=== PATIENT | female | born 1960 | race Caucasian/White ===

== ENCOUNTER 2022-05-03 07:27 | Day surgery (SDC) | payer BC, SELFPAY ==
[2022-05-03] VITALS (19 sets, daily range): BP systolic 102–144; BP diastolic 56–95; PULSE 49–68; RESP 16–20; TEMP 36.1–36.6; O2SAT 7–99; BMI 24.0
[2022-05-03] MEDS: fentaNYL 100 MCG/2 ML inj IVP (07:09)
[2022-05-03] MEDS: MIDAZOLAM HCL 1 MG/ML inj IVP (07:09)
[2022-05-03] MEDS: LACTATED RINGERS 1000 ML 1,000 ML 100 ML IV (07:30)
[2022-05-03] MEDS: SODIUM CHLORIDE 0.9 % (FLUSH) 10 ML SYRINGE IVF (08:26)
--- NOTE | 2022-05-03 08:32 | SUR.PREOP ---
TIME?OUT:? 0830 PT/RN/MDA?VERIFICATION?OF?SURGICAL?SITE,?PROCEDURE,?AND?CONSENT OBTAINED?PRIOR?TO?INVASIVE?PROCEDURE. right shoulder charles finley, darby rn, pt, and consent
--- NOTE | 2022-05-03 08:42 | W.PM.NB ---
Nerve Block Nerve Block Time Seen by Provider: 08:30 Date Seen: 05/03/22 Type of block requested by surgeon for post-operative analgesia: supraclavicular Side: right Time out performed: Yes Verification of patient name: Yes Verification of date of : Yes Site marking: site marked Name of person performing procedure: Chin Thomas Continuous monitoring Was continuous monitoring of O2 sat, B/P, air sampling and monitoring, recorded every 15 minutes?: Yes Procedure Checklist: sterile prep, needles and gloves Ultrasound guided. Images saved: Yes Medications given in 5ml increments after negative aspiration: Ropivicaine Decadron (mg): 10 Precedex (mcg): 25 Patient tolerated procedure well: Yes Block Charges Block Charge (with Pro Fee): Brachial Plexus Use of Ultrasound Machine for Block: Yes- US Guidance/pain block
[2022-05-03] MEDS: CEFAZOLIN 2 GM in 0.9 % SODIUM CHLORIDE Mini-bag 100 ML IVPB (09:25)
[2022-05-03] MEDS: SODIUM CHLORIDE IRRIG SOLUTION 3,000 ML, EPINEPHrine 1 MG IRRIGATION (10:06)
[2022-05-03] MEDS: methylPREDNISolone acetate 80 MG/ML INJ INTRA-ARTI (11:16)
--- NOTE | 2022-05-03 11:18 | PM.ORPRC ---
Procedure Note Date of procedure: 05/03/22 Procedure: PREOPERATIVE DIAGNOSES: 1. Right shoulder rotator cuff jrjg-ltuv-hmrlikzyf supraspinatus 2. Right shoulder AC degenerative joint disease 3. Right shoulder subacromial impingement syndrome. POSTOPERATIVE DIAGNOSES: 1. Right shoulder rotator cuff yaqb-zxrm-bvpqqfzuu supraspinatus 2. Right shoulder AC degenerative joint disease 3. Right shoulder high-grade partial-thickness long head of biceps tendon tearing 4. Right shoulder degenerative labral fraying tearing 5. 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 Right shoulder subacromial impingement syndrome. NAME OF OPERATION: 1. Right shoulder arthroscopic rotator cuff janzbg-hawq-lqypkkuie supraspinatus 2. Right shoulder arthroscopic distal clavicle excision 3. Right shoulder arthroscopic long head of the biceps tenodesis 4. Right shoulder arthroscopic extensive glenohumeral debridement including debridement of labral tissue, biceps tissue, glenoid chondral tissue, and upper border subscapularis rotator cuff tissue 5. Right shoulder arthroscopic bursectomy, subacromial decompression/partial acromioplasty. SURGEON: Gaurang Wolff MD SPANISH INSTRUCTOR: Sp Cook PA-C. Of note, a skilled food and nutrition services assistant was critical for this case to aide in patient positioning, suture manipulation, arm positioning, instrument positioning, and closure. ANESTHESIA: General plus preoperative supraclavicular block. EBL: Less than 20 mL IMPLANTS: Arthrex 4.75 mm BioComposite SwiveLock suture anchor (x3); 5.5 mm BioComposite SwiveLock suture anchor (x2) COMPLICATIONS: None evident INDICATIONS: The patient is a pleasant, 61-year-old female who has experienced right shoulder pain that has been increasing in recent time. Physical exam and imaging were consistent with a rotator cuff tear. Given their findings, as well as the weakness and pain, and inadequate response to nonoperative management, recommendation was made for surgery. FINDINGS: Exam under anesthesia revealed stable shoulder with excellent range of motion. The diagnostic arthroscopy revealed grade 3-4 chondromalacia anterior glenoid. Relatively healthy humeral head chondral tissue. The Subscapularis tendon was minimally frayed on its upper border near its insertion site. Majority the tendon was healthy and intact. The long head of the biceps tendon was torn and high-grade partial-thickness manner throughout the intra-articular portion that could be visualized. The superior rotator cuff tendon was found to be torn full-thickness through the anterior half at its insertion site. Is also torn majority the supraspinatus at the greater tuberosity near the articular surface. The labrum was degeneratively frayed and torn in the anterior superior and posterior aspects. No loose bodies were identified within the pouch or subscapularis recess. PROCEDURE: Following a thorough discussion of risks, benefits, and alternatives, consent was obtained and the right shoulder was marked. The patient was brought to the operating room and placed supine on the operating table. Induction of anesthesia was completed after preoperative supraclavicular block was administered in preop holding. Appropriate time out was performed identifying proper patient, site, and procedure. 2 g IV Ancef was administered within 1 hour of incision preoperatively. The right upper extremity was prepped and draped in the appropriate sterile fashion using ChloraPrep prep. This was after the patient was positioned in the beach chair with their head in neutral alignment and all bony prominences well padded. The shoulder was insufflated with 20mL of normal saline via an 18g spinal needle from a posterior approach. An 11 blade skin incision allowed a blunt trochar to be inserted and diagnostic arthroscopy to be performed with the findings as noted above. An anterior portal was established with an outside in technique. This allowed the probe to be inserted and confirm the diagnostic arthroscopic findings. The shaver was then inserted and allowed debridement of the anterior and superior labrum as well as the anterior loose chondral flaps from the glenoid chondral a the biceps anchor, and the upper border subscapularis minimal frayed tissue. [Additionally, the long of the biceps was released from the bicipital tuberosity for arthroscopic tenodesis. The tendon was 1st captured in a loop and tack manner but multiple other throws were passed as the tissue quality was poor. This allowed us to have a good security to the long head of the biceps tendon. It was then released and the stump debrided. This was anchored with a 4.75 mm BioComposite SwiveLock suture anchor in the bicipital groove after roughening this with an arthroscopic rasp. Thereafter, the subacromial space was entered. Here, a complete bursectomy and partial acromioplasty/subacromial decompression was performed with a combination of radiofrequency ablator, the shaver, and a 5.5 mm bur. Additionally, distal clavicle excision was performed with the bur. 8 mm of distal clavicle was resected based on the with of our bur. Further inspection of the supraspinatus and infraspinatus rotator cuff was performed. This identified the tear as noted above. The margins of the tear were debrided, and the greater tuberosity was debrided with a combination of the apollo cautery, shaver, and bur on reverse setting. After gentle decortication, a speed bridge configuration with a medial michell was engaged. 2 medial anchors were placed and the sutures were passed with a fiber link. The eyelet suture tails were then retrieved and tied and cinched down for the medial michell purpose. A tail from each of the medial row anchor FiberTapes were then brought to a lateral row anchor along with 1 of the tails from the medial michell. Excellent reapproximation of the tissue to the greater tuberosity was achieved with broad footprint compression. Prior to anchor guard driver removal, the eyelet sutures were tugged on for each anchor and found that the anchor had excellent stability within the bone. The shoulder was placed through range of motion and found to be stable. The rotator cuff was re-probed and found to be stable. Instruments were removed. Excess fluid was drained, closure performed with 4-0 Monocryl and Steri-Strips. Dressings were applied. Sling was applied. The patient was awoken from anesthesia and transferred to the PACU in stable condition. A skilled food and nutrition services assistant was critical for this case to aid in patient positioning, limb positioning, skill to manipulate arthroscopic instruments and camera, suture management, patient safety, and closure. PLAN: 1. Elbow, forearm, wrist and digit range of motion as tolerated. 2. Encouraged ice. 3. Percocet for pain as needed. 4. Sling at all times except for ROM and showering. 5. Follow up with PA visit in 1-2 weeks for wound check. Initiate physical therapy following that visit for passive range of motion. Initiate active assisted range of motion at 4 weeks. May do pendulums now.
--- NOTE | 2022-05-03 11:37 | W.ANESCHARGE ---
Anesthesia Charges Start Date/Time Anesthesia Start Date: 05/03/22 Anesthesia Start Time: 09:04 Stop Date/Time Anesthesia Stop Date: 05/03/22 Anesthesia Stop Time: 11:38 Summary Emergency: No
== END 2022-05-03 14:10 | disposition home or self-care (01) ==
PROVIDERS: PCP Family Medicine; Visit Provider Orthopaedic Surgery Sports Medicine
PROC: (CPT 29805; principal; 2022-05-03 09:00)
DX: M75.121 Complete rotator cuff tear or rupture of right shoulder, not specified as traumatic (principal); M19.011 Primary osteoarthritis, right shoulder; M75.41 Impingement syndrome of right shoulder; S46.111A Strain of muscle, fascia and tendon of long head of biceps, right arm, initial encounter; M94.211 Chondromalacia, right shoulder
CPT/HCPCS: 29827; 29828; 29826; 29823; 29824; 1630; 64415; 76942; C1713; J0171; J0330; J0690; J1040; J1100; J2250; J2405; J2704; J2795; J3010; J7120

== ENCOUNTER 2022-12-21 11:15 | Outpatient (RCR) | payer BC, SELFPAY ==
--- NOTE | 2022-05-15 15:31 | PT.OPEX ---
PT [place] Outpatient Eval PT [facility] Outpatient Eval Start: 05/15/22 12:07 Freq: Status: Active Protocol: Document 05/15/22 15:26 MARIA INES (Rec: 05/15/22 15:30 CLRaghav [id number]) E-signed By Rosie Little, PT Physical Therapy Outpatient Evaluation Insurance Information Insurance Name Medicaid Insurance Information/Comments [employer] Cross Medicaid Products Medical Diagnosis Rt shoulder RCR 05/03/22 Full thickness repair of supraspinatus, long biceps head tenodesis, extensive debridement and bursectomy, subacromial decompression and partial acromioplasty. Treating Diagnosis Impaired ROM, strength and ease of ADL's and self cares Rt shoulder pain Referring MD Dr Gaurang Wolff Subjective Subjective Rocio reports her surgery went fine, but residually had Rt thumb pain/arthritis. Had an injection which was very painful once the nerve block wore off. Severe edema, started ibuprofen and ice. It is much better now (have GERD) . She now denies N/T into neck our elbow down, some still at base of thumb. Sore in my shoulder, but I would think that is normal. Denies MATHEWS. Eating is back to normal. Not constipated any longer. Sleeping is improved, I am in my own bed already. I do wake up more than normal, purchased a wedge pillow and use other pillows to stabilize and have figured out how to get comfortable. I have been laying down and resting for 30 min during the day still. 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 She saw her physician this date, incision is healing well and closed. She presents with slightly elevated Rt shoulder and protraction. Normal elbow, wrist and hand AROM. PROM is fairly good: FF 0-120, ABD 0- 85, ER 0-40, IR 0-51 deg. She has hypertonicity grossly full Rt shoulder, but especially at pect major/minor, UT, biceps, levator and rhomboid mm. She will benefit from continued skilled physical therapy to provide STM/MFR/TPR and progressive PROM to AROM per physiciain f/u and return as able to PLOF. Thank you for this referral. Plan of Care Rehabilitation Potential Good Physical Therapy Goals In 6-8 visits, Rocio will be able to: 1. PROM WNL fairly pain free 2. Sleep up to 6 hours without awakening secondary to pain 3. Absence of use of medication for pain control In 12-14 visits, Rocio will be able to: 1. MMT at least 4/5 2. AROM at least WFL fairly pain free 3. IND in self cares from waist to crown, light house keeping 4. Repetitive light chores up to 3 hours 5. Return to Work and PLOF fully at 6 months Coordination/Communication With Referral Source Treatment Plan/Direct Interventions Ice/Cold/Vasopneumatic,Joint Mobilization,Manual Therapy, Self-Care/Home Management, Therapeutic Activities, Therapeutic Exercises Frequency/Duration 1X/Wk for 12 visits Patient Will Be Discharged From Therapy Completion of LTG(s),Skills Plateau,Independent w/HEP, Independently Progressing Evaluation Billing Untimed Code Treatment Minutes 24 Complexity Moderate Certification Information Physician Comment/Change Comment or Changes Physician NPI Number #
== END 2023-02-08 09:16 | disposition home or self-care (01) ==
PROVIDERS: PCP Family Medicine; Visit Provider Physician Assistant Surgical
DX: Z98.890 Other specified postprocedural states (principal); Z51.89 Encounter for other specified aftercare
CPT/HCPCS: 97110; 97140; 97162

== ENCOUNTER 2023-11-06 13:45 | Outpatient (RCR) | payer MEDICARE, BC, SELFPAY ==
--- NOTE | 2023-10-17 14:24 | PT.OPEX ---
PT [place] Outpatient Eval PT [facility] Outpatient Eval Start: 10/17/23 07:14 Freq: Status: Active Protocol: Document 10/17/23 07:14 MARIA INES (Rec: 10/17/23 07:22 CLRaghav [id number]) E-signed By Rosie Little PT Physical Therapy Outpatient Evaluation Insurance Information Recert Due Date 01/11/24 Insurance Name Medicare B Medical Diagnosis Lt Shoulder RCT - Low Grade tearing of Supra/infraspinatus and Subscapularis Tendinosis Lt Shoulder OA Treating Diagnosis Lt Shoulder pain and reduced ease of ADL's impaired posture reduced Lt shoulder endurance/ use due to pain Referring MD Dr Gaurang Wolff Subjective Subjective Rocio reports having suffered from Lt shoulder pain since she had her Rt RC surgically repaired Apr. She thought it might just be overuse due to the restrictions and inability to use her Rt arm, but the pain persisted. She did start doing her AROM and strength HEP from her Rt shoulder on her Lt as well, but it did not seem to help. She denies trauma to Lt shoulder. Some days it is very painful, but then it can be pain free for 2-3 weeks. Most pain at night with rest or when sleeping - hard to get comfortable. She is very frustrated, feeling like she just got back to normal from her Rt/dominant shoulder RCR. 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 Recent MRI denotes low grade tearing of the supra/ infraspinatus and subscapularis mm. Also OA of GH and AC joints. She underwent RC surgical repair of her Rt shoulder s/p 1.5 years ago. This Lt shoulder has been involved since then. She thought it was just overuse with restrictions on Rt UE, but pain has persisted. She denies any accident or incident of injury/non- traumatic in nature. She presents with slightly protracted/elevated Lt shoulder, injured wing posturing. Hypertonicity present at Lt pect major/minor , deltoid, biceps, UT, levator soft tissue. She has full AROM and MMT is normal 5/5, but report of pain with testing end range ABD and IR, MMT ER/IR. If she does decide to have surgery, she wants to wait until mid February. In the mean time, she will benefit from continued skilled physical therapy to provide STM/MFR/TPR and progressive strneght/stability and endurance tasks. Thank you for this referral. Plan of Care Rehabilitation Potential Good Physical Therapy Goals In 6-8 visits, Rocio will be able to report: 1. AROM WNL and executed fairly pain free to don/doff overhead clothing without compensatory movements. 2. Sleep up to 6 hours without awakening secondary to Lt shoulder pain. 3. Absence of use of medication for pain control. 4. Lift/carry up to 25# with overhead 15# pain free to cont with house cleaning/work. 5. IND in self cares from waist to crown; light house keeping, meal prep, lifting intermittently from 1-15# 6. Repetitive light house chores up to 3 hours; vacuum, sweep, dust, fold laundry, etc . 7. RTW at PLOF and arm use overhead and out to the side, unrestricted Coordination/Communication With Referral Source Treatment Plan/Direct Interventions Joint Mobilization,Manual Therapy,Neuromuscular Re-ed, Self-Care/Home Management, Therapeutic Activities, Therapeutic Exercises Frequency/Duration 1X/Wk X 10 visits Patient Will Be Discharged From Therapy Completion of LTG(s),Skills Plateau,Independent w/HEP, Independently Progressing Evaluation Billing Untimed Code Treatment Minutes 23 Complexity Moderate Certification Information Initial Certification Date 10/17/23 Ending Certification Date 01/11/24 Provider Signature Shows Agreement With POC & Medical Necessity Physician Signature & Date Requested Please Sign/Date Here Physician Comment/Change : Physician NPI Number #
== END 2024-03-05 23:59 | disposition home or self-care (01) ==
PROVIDERS: PCP Family Medicine; Visit Provider Orthopaedic Surgery Sports Medicine
DX: M19.012 Primary osteoarthritis, left shoulder (principal); M75.102 Unspecified rotator cuff tear or rupture of left shoulder, not specified as traumatic; Z51.89 Encounter for other specified aftercare
CPT/HCPCS: 97110; 97140; 97162

== ENCOUNTER 2024-04-09 06:26 | Day surgery (SDC) | payer MEDICARE, BC, SELFPAY ==
[2024-04-09] VITALS (14 sets, daily range): BP systolic 119–145; BP diastolic 55–86; PULSE 53–72; RESP 14–18; TEMP 36.1–36.4; O2SAT 93–99; BMI 24.7
[2024-04-09] MEDS: SODIUM CHLORIDE 0.9 % (FLUSH) 10 ML SYRINGE IVF (07:19)
[2024-04-09] MEDS: LACTATED RINGERS 1000 ML 1,000 ML 100 ML IV ×2 (07:20→09:00)
--- NOTE | 2024-04-09 07:20 | W.PM.H&PU ---
History & Physical Update History & Physical Update H&P Reviewed and patient assessed: No changes noted
--- NOTE | 2024-04-09 07:21 | P.ORPRC_ITS ---
Procedure Note Date of procedure: 04/09/24 Procedure: PREOPERATIVE DIAGNOSES: 1. Left shoulder partial-thickness rotator cuff tear. 2. Left shoulder glenohumeral osteoarthritis 3. Left shoulder subacromial impingement syndrome. 4. Left shoulder acromioclavicular osteoarthritis POSTOPERATIVE DIAGNOSES: 1. Left shoulder partial-thickness rotator cuff tear. 2. Left shoulder moderate glenohumeral osteoarthritis 3. Left shoulder subacromial impingement syndrome. 4. Left shoulder acromioclavicular osteoarthritis NAME OF OPERATION: 1. Left shoulder arthroscopic rotator cuff debridement. 2. Left shoulder arthroscopic extensive glenohumeral and subacromial debridement 3. Left shoulder arthrosis subacromial decompression/partial acromioplasty 4. Left shoulder arthroscopic distal clavicle excision SURGEON: Flakito Allen MD VP STRATEGIC PLANNING: Megan Mauricio P.A.-C. An health center assistant was critical for this case to aide in patient positioning, suture manipulation, arm positioning, instrument positioning, and closure. ANESTHESIA: General plus preoperative supraclavicular block. IMPLANTS: None COMPLICATIONS: None ESTIMATED BLOOD LOSS: 5 mL INDICATIONS: The patient is a pleasant, 63-year-old female who has experienced chronic left shoulder pain that has been increasing in recent time. Physical exam and imaging were consistent with a partial-thickness rotator cuff tear. Given these findings, as well as the weakness and pain, and failure to improve with nonoperative management, recommendation was made for surgery. FINDINGS: Exam under anesthesia revealed stable shoulder with full range of motion. The diagnostic arthroscopy revealed diffuse grade 4 chondromalacia of the humeral head with diffuse grade 3 and grade 4 chondromalacia of the entire glenoid. Diffuse degenerative fraying of the glenoid labrum. Long head of the biceps tendon was intact. The Subscapularis tendon was intact. There was partial-thickness tearing of the articular aspect of the supraspinatus which involved less than 25% of the tendon thickness. Infraspinatus was intact. No loose bodies were identified within the pouch or subscapularis recess. Diffuse subacromial bursitis. Downsloping anterior acromion with moderate degenerative changes of the acromioclavicular joint. The long head of the biceps tendon was [intact]. PROCEDURE: Following a thorough discussion of risks, benefits, and alternatives, consent was obtained and the operative shoulder was marked. A supraclavicular nerve block was performed by anesthesia staff in preop holding. The patient was brought to the operating room and placed supine on the operating table. Induction of anesthesia was completed, and patient was given IV Ancef preoperatively for prophylaxis. A surgical time-out was performed confirming patient identity, surgical site, and procedure. Patient was placed into the beach chair position. Head was placed in padded head banquet waitress in neutral alignment, and all bony prominences were well padded. The operative shoulder and upper extremity were prepped and draped in the a ppropriate sterile fashion using ChloraPrep. The glenohumeral joint was injected with 40 mL of normal saline using an 18g spinal needle from a posterior approach. Posterior portal was established. Anterior portal was established after localization with a spinal needle and a 7.0 mm cannula was placed here. Diagnostic arthroscopy was then performed with findings as noted above. The shaver was then used to debride the frayed anterior, superior, and posterior labrum as well as loose cartilage from the glenoid. Articular side of the rotator cuff had some fraying which was debrided. After debridement of the frayed tissue this involved only approximately 3-4 mm of the footprint. Using a spinal needle, PDS suture was then passed as a marking stitch for the location of the partial-thickness rotator cuff tear so that it could be identified from the subacromial space. Cam was then placed into the subacromial space. A lateral portal was established after localization of spinal needle. A bursectomy and partial acromioplasty were performed using the bone-cutting shaver and radiofrequency ablator. The rotator cuff was then thoroughly inspected and no tearing was noted on the bursal side. Cuff was probed at the site of the partial-thickness tear and was confirmed to be intact. Attention was then directed to the distal clavicle excision. Acromioclavicular joint was debrided of soft tissue using the radiofrequency ablator. Distal clavicle excision was then performed using a 5.0 mm bur, removing approximately 1 cm bone from the distal clavicle. A 70 degree scope was utilized to confirm complete resection of the distal clavicle. Excess fluid was then drained from the subacromial space and surgical instruments removed. Portal sites were closed using 3-0 nylon simple interrupted sutures and sterile dressings were applied. Left arm was then placed in a sling. Patient was rotated back to the supine position awoken from anesthesia. She was then transferred to the PACU in stable condition. PLAN: 1. Discharged to home day of surgery. 2. Ice for pain and swelling. 3. Tylenol and oxycodone as needed for pain control. 4. Simple sling as needed for comfort. -Remove sling several times daily for finger, wrist, elbow, and shoulder range of motion exercises. 5. May gradually advance activities as tolerated without restrictions. 5. Follow-up in orthopedic clinic in 10-14 days for wound check and suture removal. 6. Will initiate formal physical therapy 2 weeks postoperatively per the [facility]/Debridement Rehabilitation Protocol
--- NOTE | 2024-04-09 07:29 | SUR.PREOP ---
Dr. Allen here to see pt.
[2024-04-09] MEDS: fentaNYL 100 MCG/2 ML inj IVP (07:42)
[2024-04-09] MEDS: MIDAZOLAM HCL 1 MG/ML inj IVP (07:42)
--- NOTE | 2024-04-09 07:44 | SUR.PREOP ---
TIME?OUT:?0741 PT/RN/MDA?VERIFICATION?OF?SURGICAL?SITE,?PROCEDURE,?AND?CONSENT OBTAINED?PRIOR?TO?INVASIVE?PROCEDURE. all in agreement
[2024-04-09] MEDS: CEFAZOLIN 2 GM INJ IVP (08:01)
[2024-04-09] MEDS: EPINEPHrine 1 MG in SODIUM CHLORIDE IRRIG SOLUTION 3,000 ML 9003 MG IRRIGATION ×3 (09:15→09:30)
--- NOTE | 2024-04-09 09:37 | W.ANESCHARGE ---
Anesthesia Charges Start Date/Time Anesthesia Start Date: 04/09/24 Anesthesia Start Time: 07:48 Stop Date/Time Anesthesia Stop Date: 04/09/24 Anesthesia Stop Time: 09:21
--- NOTE | 2024-04-09 09:54 | W.ANESCHARGE ---
Anesthesia Charges Start Date/Time Anesthesia Start Date: 04/09/24 Anesthesia Start Time: 07:48 Stop Date/Time Anesthesia Stop Date: 04/09/24 Anesthesia Stop Time: 09:21
--- NOTE | 2024-04-09 09:55 | W.PM.NB ---
Nerve Block Nerve Block Time Seen by Provider: 07:46 Date Seen: 04/09/24 Type of block requested by surgeon for post-operative analgesia: supraclavicular Side: left Time out performed: Yes Verification of patient name: Yes Verification of date of : Yes Site marking: site marked Name of person performing procedure: Lacho Continuous monitoring Was continuous monitoring of O2 sat, B/P, groundwater monitoring technician, recorded every 15 minutes?: Yes Procedure Checklist: sterile prep, needles and gloves Ultrasound guided. Images saved: Yes Medications given in 5ml increments after negative aspiration: Ropivicaine %: 0.5 mL: 20 Needle gauge: 22 Decadron (mg): 10 Precedex (mcg): 25 Patient tolerated procedure well: Yes Block Charges Block Charge (with Pro Fee): Brachial Plexus Use of Ultrasound Machine for Block: Yes- US Guidance/pain block
--- NOTE | 2024-04-09 12:06 | SUR.PHASEII ---
pt tolerated toast and water. Up to bathroom with SBA. left arm in sling, pt can't wiggles fingers. numbness in left arm. Wheelchair out to car with pt's significant other.
== END 2024-04-09 12:08 | disposition home or self-care (01) ==
LOC: OR 06:27
PROVIDERS: PCP Family Medicine; Visit Provider Orthopaedic Surgery
PROC: (CPT 29805; principal; 2024-04-09 07:45)
DX: M75.102 Unspecified rotator cuff tear or rupture of left shoulder, not specified as traumatic (principal); M19.012 Primary osteoarthritis, left shoulder; M75.42 Impingement syndrome of left shoulder; G89.18 Other acute postprocedural pain
CPT/HCPCS: 29826; 29823; 29824; 01630; 64415; 76942; J0171; J0690; J1100; J2250; J2371; J2405; J2704; J3010; J3490; J7120; L3670

== ENCOUNTER 2024-06-11 10:30 | Outpatient (RCR) | payer MEDICARE, BC, SELFPAY ==
--- NOTE | 2024-04-21 12:56 | PT.OPEX ---
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 Diffuse degenerative fraying of the glenoid labrum. Long head of the biceps tendon was intact. The Subscapularis tendon was intact. There was partial- thickness tearing of the articular aspect of the supraspinatus which involved less than 25% of the tendon thickness. Infraspinatus was intact. No loose bodies were identified within the pouch or subscapularis recess. Diffuse subacromial bursitis. Downsloping anterior acromion with moderate degenerative changes of the acromioclavicular joint. The long head of the biceps tendon was [intact] Referring MD WASHINGTON Subjective Subjective PATIENT REPORTS THAT SHE WORE HER SLING FOR A COUPLE OF DAYS BUT THEN FELT SHE DIDN'T NEED . IT. SHE DESCRIBES A SLOW INCREASE IN THE ACHE IN HER RIGHT SHOULDER WHICH WAS REMINISCENT OF HOW HER RIGHT SHOULDER RCR WHICH WAS A LARGE TEAR. SHE IS HOPING TO RETURN TO WORK ON 6-8 WEEKS. Pain Comments -11/03 Date of Next Physician Visit 05/20/24 Date of Surgery (If applicable) 04/09/24 Current Work Status Retired Occupation CLEANS HOUSES ~12HRS/WEEK Precautions Therapy Limitations/Systems Review Not Limited Objective Other/Pertinent Objective STDG AROM 125/118/28/L5; SUPINE 168/162/68@45 PAINFUL ARC NOTED WITH GENERALIZED ACHE INCISIONS ARE PRISTINE Assessment Assessment/Impression PATIENT IS A 63 YO REFERRED TO PHYSICAL THERAPY S/P RCR/SAD/ DCE/LGHD 04/08/[address] WASHINGTON. PMHX INCLUDES BUT NOT LIMITED COPD, H/O R RCR/ SAD/DCE (04/2022), OA RIGHT KNEE, OA CSPINE GERD. PATIENT WORKS CLEANING HOUSES FOR ~ 12HOURS/WK AND GRADUALLY FELT AN INCREASE IN ACHING. SHE HAD A CORTISONE INJECTION IN NOVEMBER WITH MIN RELIEF. TODAY, SHE IS NOT WEARING SLING AND DEMONSTRATES MIN EDEMA WITH PRISTINE INCISIONS. HER SHOULDER MEASURES STDG AROM 125/118/28/L5; SUPINE 168/162/ 68@45. SHE IS HER ORTHO HAS PUT HER ON THE ACCELERATED SHOULDER SURGERY/DEBRIDEMENT REHABILITATION PROTOCOL AND BEGAN HER WITH AAROM WITH ISOMETRIC WORK. SHE NEEDS MANY REMINDERS TO WORK WITHIN HER PAINFREE ROM WITH EXAMPLES PROVIDED ON HOW MUCH DISCOMFORT IS ACCEPTABLE.. SHE IS APPROPRIATE FOR SKILLED PHYSICAL THERAPY TO ADDRESS ROM, STRENGTH, STABILIZATION AND SYMPTOM MGMT TO REACH HER PATIENT CENTERED GOAL OF RETURN TO WORK Primary Functional Limitations [employer] WT [place]AR[employer] Plan of Care Rehabilitation Potential Good Physical Therapy Goals IN 6-8 WEEKS: 1. DECREASE SHOULDER PAIN TO < /2-3/10 WITH DAILY ACTIVITIES AND WITH THE PROGRESSION OF HER HEP OVER THE NEXT 4 WEEKS. 2. DEMONSTRATE PAIN FREE AROM OVER THE NEXT 4-6 WEEKS DURING DAILY ACTIVITIES WITHOUT FLARE UPS OF SYMPTOMS. 3. PATIENT WILL VERBALIZED UNDERSTANDING OF POSTURING AND BODY MECHANICS IT RELATES TO DECREASING STRESS, IMPROVED SHOULDER MECHANICS, AND DECREASED SYMPTOMS. 4.PATIENT WILL DEMONSTRATES IMPROVED STRENGTH TO FACILITATE RETURN TO DAILY ACTIVITIES WITH LESS SYMPTOMS AND DECREASED OPPORTUNITIES FOR FLARE UP OF PAIN IN 6-8 WEEKS 5. PATIENT WILL BE INDEPENDENT WITH HER HEP WITHIN THE NEXT 6-8 WEEKS FOR PROGRESSION TWD ABOVE MENTION GOALS, CONTINUED MGMT OF SYMPTOMS, AND ONGOING SELF IMPROVEMENTS IN POSTURING/STRENGTH/ STABILIZATION. Coordination/Communication With Referral Source Treatment Plan/Direct Interventions Ice/Cold/Vasopneumatic,Joint Mobilization,Manual Therapy, Neuromuscular Re-ed,Self-Care/ Home Management,Therapeutic Activities,Therapeutic Exercises Frequency/Duration 2X/WK Patient Will Be Discharged From Therapy Completion of LTG(s), Independently Progressing Evaluation Billing Untimed Code Treatment Minutes 15 Complexity Low Certification Information Initial Certification Date 04/21/24 Ending Certification Date 07/19/24 Provider Signature Required Yes Provider Signature Shows Agreement With POC & Medical Necessity Physician NPI Number Write NPI# Here Physician Comment/Change : Physician Signature & Date Requested Please Sign/Date Here
--- NOTE | 2024-05-12 12:58 | PT.OPDNX ---
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 Diffuse degenerative fraying of the glenoid labrum. Long head of the biceps tendon was intact. The Subscapularis tendon was intact. There was partial- thickness tearing of the articular aspect of the supraspinatus which involved less than 25% of the tendon thickness. Infraspinatus was intact. No loose bodies were identified within the pouch or subscapularis recess. Diffuse subacromial bursitis. Downsloping anterior acromion with moderate degenerative changes of the acromioclavicular joint. The long head of the biceps tendon was [intact] Referring MD W[place] Subjective Preferred Name KHOI Subjective PATIENT RETURNS WITH CONTINUED C/O ACHINESS BUT OTHERWISE NO ISSUES. SHE IS USING HER ICE AND OTC FOR PAIN MGMT ALONG WITH GOOD COMPLIANCE WITH HER HEP. Pain Comments 01/03 Date of Next Physician Visit 05/20/24 1:30 Date of Surgery (If applicable) 04/09/24 Objective Other/Pertinent Objective CURRENT: 05/08/24 STDG AROM 158 /152/58/L4; SUPINE AROM 168/ 166/88 @45 SCAPTION/ 66@45 IN SCAPTION Patient Instructed in Risks/Benefits Yes Therapeutic Exercise Therapeutic Exercise Minutes (minutes) 30 Therapeutic Exercise: To Restore UBE 5' Functional Status CUBA 4' SHOULDER SHRUGS W/BKWD ROTATION X 15 WALL-> MOVED TO TABLE AAROM SLIDES INTO FLEX X 15 WALL-> MOVED TO TABLE AAROM SNOW BRENT 15 EA DIRECTION WALL -> MOVED TO TABLE ALPHABET STDG TB (YELLOW 10#) ROW X 15 HOLD 3 SEC STDG TB (YELLOW 10#) S'EXT X 15 HOLD 3 NOT TODAY STDG S'ABD X 10 0# NOT TODAY STDG S'FLEX X 10 0# NOT TODAY STDG AAROM CANE INTO SCAPTION AND FLEX 10EA BENT ROW X 15 1# BENT S'EXT X 15 1# BENT H'ABD X 10 0# NOT TODAY BENT SCAPTION X 10 0 NOT TODAY SUPINE FLEX W/OPP HAND X 10 Manual Therapy Techniques Manual Therapy Minutes (minutes) 12 Manual Therapy Techniques PROM Treatment Minutes Timed Code Treatment Minutes 42 Total Treatment Time 42 Billing Units Therapeutic Exercise Units 3 Assessment/Impression Assessment/Impression PATIENT SILVINO MODIFIED TX FAIR TODAY TAKING OUT ALL AAROM/AROM THAT INCREASED TISSUE IRRITABILITY SHE C/O ONGOING AND CONSISTENT CAPSULAR/TISSUE IRRITATION WITH A PAINFUL ARC. SHE C/O ACHING AT REST, NIGHT , AND PREDOMINATELY THROUGHOUT THE DAY. SHE IS UNABLE TO TAKE NSAIDS D/T HER GERD ISSUES AND HAS JUST RECENTLY RESUMED HER CELEBREX THAT SHE HAD TAKEN REGULARLY BEFORE SURGERY . CONTINUED INSTRUCTION TO PATIENT TO PERFORM HER AROM/AAROM WITHIN PAINFREE ROM AND TO DEFAULT TO THE TABLE SHOULD THE WALL AROM/AAROM CAUSE INCREASED IRRITATION. SHE HAS NOT BEEN SCALING THIS BACK. SHE IS COMPLIANT WITH HEP AND USE OF ICE SO, INTERVENING MEDICINALLY WITH TYLENOL ARTHRITIS AND RESUMPTION OF HER CELEBREX. WE ARE NOW ONLY PERFORMING SCAPULAR STRENGTHENING WITH THE LIGHTEST OF THERABAND OR NO RESISTANCE AND MOVED BACK TO THE TABLE FOR HER AAROM. SHE IS REPEATEDLY INSTRUCTED TO DECREASE THE AMPLITUDE OF THE MVMT SHOULD IT BEGIN TO CAUSE PAIN. SHE WOULD BENEFIT FROM ADDITIONAL OR ALTERNATE INFLAMMATORY MEDICINAL INTERVENTION SO THAT SHE CAN TOLERATE AROM OF HER SHOULDER. 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 I REMOVED HER STDG TB S'EXT THIS CONSISTENTLY EXACERBATES HER PAIN. PATIENT IS APPROPRIATE FOR CONTINUED SKILLED PHYSICAL THERAPY FOR SYMPTOM MGMT, RTC /SCAP STRENGTHENING AND STRETCHING. Plan of Care Physical Therapy Goals IN 6-8 WEEKS: 1. DECREASE SHOULDER PAIN TO < /2-3/10 WITH DAILY ACTIVITIES AND WITH THE PROGRESSION OF HER HEP OVER THE NEXT 4 WEEKS. 2. DEMONSTRATE PAIN FREE AROM OVER THE NEXT 4-6 WEEKS DURING DAILY ACTIVITIES WITHOUT FLARE UPS OF SYMPTOMS. 3. PATIENT WILL VERBALIZED UNDERSTANDING OF POSTURING AND BODY MECHANICS IT RELATES TO DECREASING STRESS, IMPROVED SHOULDER MECHANICS, AND DECREASED SYMPTOMS. 4.PATIENT WILL DEMONSTRATES IMPROVED STRENGTH TO FACILITATE RETURN TO DAILY ACTIVITIES WITH LESS SYMPTOMS AND DECREASED OPPORTUNITIES FOR FLARE UP OF PAIN IN 6-8 WEEKS 5. PATIENT WILL BE INDEPENDENT WITH HER HEP WITHIN THE NEXT 6-8 WEEKS FOR PROGRESSION TWD ABOVE MENTION GOALS, CONTINUED MGMT OF SYMPTOMS, AND ONGOING SELF IMPROVEMENTS IN POSTURING/STRENGTH/ STABILIZATION. 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
== END 2024-07-07 13:53 | disposition home or self-care (01) ==
PROVIDERS: PCP Family Medicine; Visit Provider Orthopaedic Surgery
DX: Z98.890 Other specified postprocedural states (principal); M25.511 Pain in right shoulder; M25.811 Other specified joint disorders, right shoulder; Z51.89 Encounter for other specified aftercare
CPT/HCPCS: 97110; 97140; 97161

== ENCOUNTER 2024-11-24 11:03 | Outpatient (CLI) | payer MEDICARE, BC, SELFPAY | END 2024-11-24 11:04 | disposition home or self-care (01) | LOC: NFLDREF 23:43 | PROVIDERS: PCP Family Medicine; Referring Provider Family Medicine; Visit Provider Family Medicine | DX: N30.00 Acute cystitis without hematuria (principal) | CPT/HCPCS: 87086 ==